=== PATIENT | male | born 1985 | race African-American/Black ===

== ENCOUNTER 2017-10-01 00:22 | Inpatient (IN) ==
[2017-10-01] MEDS ORDERED: ASPIRIN 325 MG TABLET PO STA (01:11)
[2017-10-01 01:26] LABS: INR 1.2; PT Patient Result 12.2 SECS; Partial Thromboplastin Time 30.3 SECS (0-40)
[2017-10-01 01:28] LABS: Basophils # 0.1 10*3/uL (0.0-0.2); Eosinophils # 0.1 10*3/uL (0.0-0.87); Eosinophils % 1.4 % (0.00-10.9); Hematocrit 41.8 VOL% (42.0-52.0); Hemoglobin 13.2 GM/DL (14.0-18.0); Immature Granulocytes % 0.3 %; Immature Granulocytes Absolute 0.02 #; Lymphocytes # 2.8 10*3/uL (1.4-4.0); Lymphocytes % 39.6 % (21.2-54.2); Mean Corpuscular HGB Conc 31.6 GM/DL (32-36); Mean Corpuscular Hemoglobin 27 PG (27-34); Mean Corpuscular Volume 85.1 FL (87-102); Mean Platelet Volume 12.9 FL (9.6-12.0); Monocytes # 0.7 10*3/uL (0.11-0.8); Monocytes % 10.1 % (1.7-12.7); Neutrophils # 3.4 10*3/uL (1.4-7.4); Neutrophils % 47.6 % (38.7-73.9); Platelet Count 202 T/CUMM (130-400); Red Blood Count 4.91 MC/CUMM (3.8-5.5); Red Cell Distribution Width 16.4 % (9.3-17.3); White Blood Count 7.1 T/CUMM (4-12)
[2017-10-01 01:32] LABS: Albumin 3.4 G/DL (3.4-5.0); Bilirubin,Total 1.2 MG/DL (0.2-1.0); Calcium 8.8 MG/DL (8.5-10.1); Osmolality,Calculated 275.5 MOS/KG (273-304); Potassium 3.4 MMOL/L (3.5-5.1); Total Protein 7.4 G/DL (6.4-8.3)
[2017-10-01] MEDS ORDERED: NITROGLYCERIN SL 0.4 MG TABLET SL ONE (01:54)
[2017-10-01] MEDS ORDERED: PANTOPRAZOLE 40 MG VIAL IV STA (03:19)
[2017-10-01] MEDS ORDERED: ONDANSETRON 4 MG/2 ML VIAL IV PRN (03:50)
[2017-10-01] MEDS ORDERED: ACETAMINOPHEN 325 MG TABLET PO PRN (03:50)
[2017-10-01] MEDS: MORPHINE 4 MG/1 ML VIAL IV PRN (05:37)
[2017-10-01] MEDS ORDERED: METOPROLOL SUCCINATE XL 25 MG TABLET PO SCH (09:00)
[2017-10-01 09:19] LABS: Basophils # 0.1 10*3/uL (0.0-0.2); Basophils % 0.8 % (0.0-0.8); Eosinophils # 0.1 10*3/uL (0.0-0.87); Hematocrit 41.1 VOL% (42.0-52.0); Hemoglobin 12.8 GM/DL (14.0-18.0); Immature Granulocytes % 0.1 %; Immature Granulocytes Absolute 0.01 #; Lymphocytes # 2.1 10*3/uL (1.4-4.0); Lymphocytes % 29.3 % (21.2-54.2); Mean Corpuscular HGB Conc 31.1 GM/DL (32-36); Mean Corpuscular Hemoglobin 27 PG (27-34); Mean Corpuscular Volume 85.6 FL (87-102); Mean Platelet Volume 13.6 FL (9.6-12.0); Monocytes # 0.8 10*3/uL (0.11-0.8); Neutrophils # 4.2 10*3/uL (1.4-7.4); Neutrophils % 57.8 % (38.7-73.9); Platelet Count 184 T/CUMM (130-400); Red Cell Distribution Width 16.2 % (9.3-17.3); White Blood Count 7.2 T/CUMM (4-12)
[2017-10-01 09:46] LABS: Albumin 3.5 G/DL (3.4-5.0); Bilirubin,Total 1.8 MG/DL (0.2-1.0); Calcium 8.6 MG/DL (8.5-10.1); Osmolality,Calculated 272.7 MOS/KG (273-304); Potassium 3.5 MMOL/L (3.5-5.1); Total Protein 7.2 G/DL (6.4-8.3)
[2017-10-01] MEDS ORDERED: LISINOPRIL 5 MG TABLET PO SCH (12:00)
[2017-10-01] MEDS: FUROSEMIDE 40 MG TABLET PO SCH (12:56)
[2017-10-01] MEDS: ASPIRIN EC 81 MG TABLET PO SCH (12:56)
[2017-10-01] MEDS: CLOPIDOGREL 75 MG TABLET PO SCH (12:56)
[2017-10-01] MEDS: PANTOPRAZOLE 40 MG TABLET PO SCH (12:57)
[2017-10-01] MEDS: ENOXAPARIN 40 MG/0.4 ML SYRINGE SUBCUT SCH (12:57)
[2017-10-01 13:46] LABS: Troponin I Only 0.846 NG/ML (0.00-0.045)
[2017-10-01 18:38] LABS: Apearance,Urine Slightly Hazy (Clear); Bilirubin,Urine Negative (Negative); Blood, Urine Negative (Negative); Glucose,Urine (UA) Negative (Negative); Hyaline Casts,Urine 5 /LPF (0-3); Ketones,Urine Negative (Negative); Mucus,Urine Moderate /LPF (Occasional); Nitrite,Urine Negative (Negative); Protein,Urine 30 MG/DL; RBC,Urine 2 /HPF (0-4); Urine Color Yellow (Yellow); Urine Specific Gravity 1.011 (1.001-1.035); Urine Urobilinogen < 2.0 EU/DL (0.2-1.0); WBC,Urine 7 /HPF (0-6)
[2017-10-01] MEDS: ATORVASTATIN 80 MG TABLET PO SCH (20:47)
[2017-10-01] MEDS: CARVEDILOL 3.125 MG TABLET PO SCH (20:50)
[2017-10-02] MEDS: MORPHINE 4 MG/1 ML VIAL IV PRN ×3 (01:00→23:42)
[2017-10-02 05:07] LABS: Basophils % 0.6 % (0.0-0.8); Eosinophils # 0.1 10*3/uL (0.0-0.87); Eosinophils % 1.6 % (0.00-10.9); Hematocrit 40.7 VOL% (42.0-52.0); Hemoglobin 12.8 GM/DL (14.0-18.0); Immature Granulocytes % 0.2 %; Immature Granulocytes Absolute 0.01 #; Lymphocytes # 2.5 10*3/uL (1.4-4.0); Lymphocytes % 38.2 % (21.2-54.2); Mean Corpuscular HGB Conc 31.4 GM/DL (32-36); Mean Corpuscular Hemoglobin 27 PG (27-34); Mean Corpuscular Volume 85.5 FL (87-102); Mean Platelet Volume 12.4 FL (9.6-12.0); Monocytes # 0.8 10*3/uL (0.11-0.8); Neutrophils % 47.4 % (38.7-73.9); Platelet Count 185 T/CUMM (130-400); Red Blood Count 4.76 MC/CUMM (3.8-5.5); Red Cell Distribution Width 16.2 % (9.3-17.3); White Blood Count 6.4 T/CUMM (4-12)
[2017-10-02 05:46] LABS: Albumin 3.3 G/DL (3.4-5.0); Calcium 8.7 MG/DL (8.5-10.1); Osmolality,Calculated 272.8 MOS/KG (273-304); Potassium 3.6 MMOL/L (3.5-5.1); Risk Ratio 1.86; Total Protein 6.7 G/DL (6.4-8.3); VLDL CHOLESTEROL 11.6 MG/DL
[2017-10-02] MEDS: ASPIRIN EC 81 MG TABLET PO SCH (09:04)
[2017-10-02] MEDS: CARVEDILOL 3.125 MG TABLET PO SCH ×2 (09:04→20:52)
[2017-10-02] MEDS: FUROSEMIDE 40 MG TABLET PO SCH (09:05)
[2017-10-02] MEDS: PANTOPRAZOLE 40 MG TABLET PO SCH (09:06)
[2017-10-02] MEDS: LISINOPRIL 2.5 MG TABLET PO SCH (09:06)
[2017-10-02] MEDS: ENOXAPARIN 40 MG/0.4 ML SYRINGE SUBCUT SCH (09:06)
[2017-10-02] MEDS: CLOPIDOGREL 75 MG TABLET PO SCH (09:11)
[2017-10-02] MEDS: ATORVASTATIN 80 MG TABLET PO SCH (20:52)
[2017-10-03 07:21] LABS: Calcium 8.9 MG/DL (8.5-10.1); Osmolality,Calculated 272.8 MOS/KG (273-304); Potassium 4.4 MMOL/L (3.5-5.1)
[2017-10-03] MEDS: ENOXAPARIN 40 MG/0.4 ML SYRINGE SUBCUT SCH (08:31)
[2017-10-03] MEDS: FUROSEMIDE 40 MG TABLET PO SCH (08:31)
[2017-10-03] MEDS: LISINOPRIL 2.5 MG TABLET PO SCH (08:31)
[2017-10-03] MEDS: ASPIRIN EC 81 MG TABLET PO SCH (08:31)
[2017-10-03] MEDS: CARVEDILOL 3.125 MG TABLET PO SCH ×2 (08:31→22:20)
[2017-10-03] MEDS: CLOPIDOGREL 75 MG TABLET PO SCH (08:31)
[2017-10-03] MEDS: PANTOPRAZOLE 40 MG TABLET PO SCH (08:31)
[2017-10-03 08:49] LABS: Albumin 3.2 G/DL (3.4-5.0); Bilirubin,Direct 0.41 MG/DL (0.0-0.20); Bilirubin,Indirect 0.8 MG/DL (0.0-1.0); Bilirubin,Total 1.2 MG/DL (0.2-1.0)
[2017-10-03] MEDS ORDERED: POLYETHYLENE GLYCOL POWDER 17 GM PACK PO PRN (12:24)
[2017-10-03 14:13] LABS: Double Stranded DNA Antibodies < 25.0 IU/ML
[2017-10-03] MEDS: SPIRONOLACTONE 25 MG TABLET PO SCH (15:38)
[2017-10-03] MEDS: ATORVASTATIN 80 MG TABLET PO SCH (21:30)
[2017-10-03] MEDS: GABAPENTIN 100 MG CAPSULE PO SCH (21:30)
[2017-10-03] MEDS: MORPHINE 4 MG/1 ML VIAL IV PRN (22:00)
[2017-10-03] MEDS: CAPTOPRIL 6.25 MG TABLET PO SCH (22:20)
[2017-10-04] MEDS: MORPHINE 4 MG/1 ML VIAL IV PRN (01:20)
[2017-10-04] MEDS: CARVEDILOL 3.125 MG TABLET PO SCH ×3 (05:58→21:00)
[2017-10-04 08:13] LABS: Basophils # 0.1 10*3/uL (0.0-0.2); Basophils % 1.1 % (0.0-0.8); Eosinophils # 0.1 10*3/uL (0.0-0.87); Eosinophils % 2.5 % (0.00-10.9); Hematocrit 39.7 VOL% (42.0-52.0); Hemoglobin 12.7 GM/DL (14.0-18.0); Immature Granulocytes % 0.2 %; Immature Granulocytes Absolute 0.01 #; Lymphocytes # 2.1 10*3/uL (1.4-4.0); Lymphocytes % 37.5 % (21.2-54.2); Mean Corpuscular Hemoglobin 27 PG (27-34); Mean Corpuscular Volume 84.8 FL (87-102); Monocytes # 0.7 10*3/uL (0.11-0.8); Monocytes % 11.7 % (1.7-12.7); Neutrophils # 2.7 10*3/uL (1.4-7.4); Platelet Count 186 T/CUMM (130-400); Red Blood Count 4.68 MC/CUMM (3.8-5.5); Red Cell Distribution Width 16.3 % (9.3-17.3); White Blood Count 5.7 T/CUMM (4-12)
[2017-10-04 08:40] LABS: Calcium 8.5 MG/DL (8.5-10.1); Osmolality,Calculated 274.7 MOS/KG (273-304); Potassium 3.6 MMOL/L (3.5-5.1)
[2017-10-04] MEDS ORDERED: MAGNESIUM SULF RIDER 4 GM in PREMIX 1 EACH IV PRN (08:50)
[2017-10-04] MEDS ORDERED: MAGNESIUM SULF RIDER 2 GM in PREMIX 1 EACH IV PRN (08:50)
[2017-10-04] MEDS ORDERED: PROPOFOL 200 MG/20 ML VIAL IV ONE (09:00)
[2017-10-04] MEDS ORDERED: ETOMIDATE 20 MG/10 ML VIAL IV ONE (09:00)
[2017-10-04] MEDS ORDERED: PHENYLEPHRINE 1 MG/10 ML SYRINGE IV ONE (09:00)
[2017-10-04] MEDS ORDERED: ESMOLOL 100 MG/10 ML VIAL IV ONE (09:00)
[2017-10-04] MEDS ORDERED: LIDOCAINE 2% 5 ML VIAL ONE (09:00)
[2017-10-04 11:02] LABS: Anti SS-A Antibodies < 16 EU/ML; Anti SS-B Antibodies < 16 EU/ML
[2017-10-04] MEDS: CAPTOPRIL 6.25 MG TABLET PO SCH ×2 (13:15→20:59)
[2017-10-04] MEDS: SPIRONOLACTONE 25 MG TABLET PO SCH (13:15)
[2017-10-04] MEDS: PANTOPRAZOLE 40 MG TABLET PO SCH (13:15)
[2017-10-04] MEDS: ASPIRIN EC 81 MG TABLET PO SCH (13:15)
[2017-10-04] MEDS: FUROSEMIDE 40 MG TABLET PO SCH (13:15)
[2017-10-04] MEDS: GABAPENTIN 100 MG CAPSULE PO SCH ×2 (13:15→20:59)
[2017-10-04] MEDS: ENOXAPARIN 40 MG/0.4 ML SYRINGE SUBCUT SCH (13:22)
[2017-10-04] MEDS: CLOPIDOGREL 75 MG TABLET PO SCH (13:22)
[2017-10-04] MEDS: CYCLOBENZAPRINE 10 MG TABLET PO PRN (20:58)
[2017-10-04] MEDS: ATORVASTATIN 80 MG TABLET PO SCH (20:58)
[2017-10-05] MEDS: MORPHINE 4 MG/1 ML VIAL IV PRN (01:07)
[2017-10-05 05:35] LABS: Basophils # 0.1 10*3/uL (0.0-0.2); Basophils % 0.8 % (0.0-0.8); Eosinophils # 0.1 10*3/uL (0.0-0.87); Eosinophils % 1.9 % (0.00-10.9); Hematocrit 41.3 VOL% (42.0-52.0); Hemoglobin 13.1 GM/DL (14.0-18.0); Immature Granulocytes % 0.8 %; Immature Granulocytes Absolute 0.06 #; Lymphocytes % 39.3 % (21.2-54.2); Mean Corpuscular HGB Conc 31.7 GM/DL (32-36); Mean Corpuscular Hemoglobin 27 PG (27-34); Mean Platelet Volume 13.4 FL (9.6-12.0); Monocytes # 0.9 10*3/uL (0.11-0.8); Monocytes % 11.4 % (1.7-12.7); Neutrophils # 3.5 10*3/uL (1.4-7.4); Neutrophils % 45.8 % (38.7-73.9); Platelet Count 212 T/CUMM (130-400); Red Cell Distribution Width 16.4 % (9.3-17.3); White Blood Count 7.6 T/CUMM (4-12)
[2017-10-05 06:07] LABS: Calcium 8.8 MG/DL (8.5-10.1); Osmolality,Calculated 275.7 MOS/KG (273-304)
[2017-10-05] MEDS: ASPIRIN EC 81 MG TABLET PO SCH (09:28)
[2017-10-05] MEDS: SPIRONOLACTONE 25 MG TABLET PO SCH (09:28)
[2017-10-05] MEDS: CLOPIDOGREL 75 MG TABLET PO SCH (09:28)
[2017-10-05] MEDS: FUROSEMIDE 40 MG TABLET PO SCH (09:29)
[2017-10-05] MEDS: GABAPENTIN 100 MG CAPSULE PO SCH ×2 (09:29→21:04)
[2017-10-05] MEDS: CAPTOPRIL 6.25 MG TABLET PO SCH ×2 (09:29→21:05)
[2017-10-05] MEDS: ENOXAPARIN 40 MG/0.4 ML SYRINGE SUBCUT SCH (09:30)
[2017-10-05] MEDS: CARVEDILOL 3.125 MG TABLET PO SCH (09:30)
[2017-10-05] MEDS: PANTOPRAZOLE 40 MG TABLET PO SCH (09:32)
[2017-10-05 11:56] LABS: Anti-Nuclear Antibody Pattern Homogeneous
[2017-10-05] MEDS: ATORVASTATIN 80 MG TABLET PO SCH (21:04)
[2017-10-05] MEDS: CYCLOBENZAPRINE 10 MG TABLET PO PRN (21:04)
[2017-10-05] MEDS: CARVEDILOL 6.25 MG TABLET PO SCH (21:05)
[2017-10-06 06:10] LABS: Basophils % 0.6 % (0.0-0.8); Eosinophils # 0.1 10*3/uL (0.0-0.87); Eosinophils % 2.2 % (0.00-10.9); Hematocrit 38.3 VOL% (42.0-52.0); Hemoglobin 12.5 GM/DL (14.0-18.0); Immature Granulocytes % 0.3 %; Immature Granulocytes Absolute 0.02 #; Lymphocytes # 2.4 10*3/uL (1.4-4.0); Lymphocytes % 38.4 % (21.2-54.2); Mean Corpuscular HGB Conc 32.6 GM/DL (32-36); Mean Corpuscular Hemoglobin 27 PG (27-34); Mean Corpuscular Volume 82.9 FL (87-102); Mean Platelet Volume 12.9 FL (9.6-12.0); Monocytes # 0.7 10*3/uL (0.11-0.8); Monocytes % 11.6 % (1.7-12.7); Neutrophils % 46.9 % (38.7-73.9); Platelet Count 189 T/CUMM (130-400); Red Blood Count 4.62 MC/CUMM (3.8-5.5); Red Cell Distribution Width 16.6 % (9.3-17.3); White Blood Count 6.4 T/CUMM (4-12)
[2017-10-06 06:19] LABS: Calcium 8.7 MG/DL (8.5-10.1); Osmolality,Calculated 269.1 MOS/KG (273-304)
[2017-10-06] MEDS: CLOPIDOGREL 75 MG TABLET PO SCH (08:54)
[2017-10-06] MEDS: GABAPENTIN 100 MG CAPSULE PO SCH (08:54)
[2017-10-06] MEDS: CAPTOPRIL 6.25 MG TABLET PO SCH (08:54)
[2017-10-06] MEDS: CARVEDILOL 6.25 MG TABLET PO SCH (08:54)
[2017-10-06] MEDS: ASPIRIN EC 81 MG TABLET PO SCH (08:55)
[2017-10-06] MEDS: SPIRONOLACTONE 25 MG TABLET PO SCH (08:55)
[2017-10-06] MEDS: PANTOPRAZOLE 40 MG TABLET PO SCH (08:55)
[2017-10-06] MEDS: FUROSEMIDE 40 MG TABLET PO SCH (08:55)
[2017-10-06] MEDS: CYCLOBENZAPRINE 10 MG TABLET PO PRN (08:56)
[2017-10-06] MEDS: ENOXAPARIN 40 MG/0.4 ML SYRINGE SUBCUT SCH (08:56)
[2017-10-06 11:59] VITALS: BP 106/68
[2017-10-06] MEDS ORDERED: SERTRALINE 25 MG TABLET PO ONE (16:10)
[2017-10-06] MEDS ORDERED: SERTRALINE 25 MG TABLET PO SCH (21:00)
== END 2017-10-06 15:20 | disposition home or self-care (01) | DRG 313 ==
LOC: N.ED 00:22 → N.EDINP 02:41 → N.TELES 03:40
PROVIDERS: ADMIT Internal Medicine; ATTEND Internal Medicine